=== PATIENT | female | born 1975 | race Caucasian/White ===

== ENCOUNTER 2023-03-23 17:43 | Emergency (ER) | payer OTHER ==
[~2023-03-23] VITALS: Ht 167.6 cm; Wt 46.3 kg
== END 2023-03-23 20:47 | disposition home or self-care (01) ==
LOC: ED 17:43
DX: S52.122A Displaced fracture of head of left radius, initial encounter for closed fracture (principal); Z88.5 Allergy status to narcotic agent; Z88.8 Allergy status to other drugs, medicaments and biological substances; W01.0XXA Fall on same level from slipping, tripping and stumbling without subsequent striking against object, initial encounter; Y93.01 Activity, walking, marching and hiking; Y92.89 Other specified places as the place of occurrence of the external cause; Y99.0 Civilian activity done for income or pay